=== PATIENT | female | born 1980 | race Two or more races ===

== ENCOUNTER 2019-07-30 15:27 | Inpatient (IN) | payer SELFPAY ==
[~2019-07-30] VITALS: Ht 165.1 cm; Wt 71.0 kg
--- NOTE | 2019-07-30 16:07 | NUR ---
metalsmith: Pt ambulatory to ED room 17 from [facility] in [facility] at this time
[2019-07-30 16:12] LABS: BASOPHILS # (AUTO) 0.04 x10^3/uL (0-0.1); BASOPHILS % (AUTO) 0 % (0-1); EOSINOPHILS # (AUTO) 0.23 x10^3/uL (0-0.4); EOSINOPHILS % (AUTO) 2 % (1-7); LYMPHOCYTES # (AUTO) 2.41 x10^3/uL (1-3.4); LYMPHOCYTES % (AUTO) 25 % (22-44); MD NO; MEAN CORPUSCULAR HEMOGLOBIN 28.9 pg (27.0-34.8); MEAN CORPUSCULAR HGB CONC 32.7 g/dL (32.4-35.8); MEAN CORPUSCULAR VOLUME 88.2 fL (80-100); MEAN PLATELET VOLUME 9.4 fL (7.4-10.4); MONOCYTES # (AUTO) 0.54 x10^3/uL (0.2-0.8); MONOCYTES % (AUTO) 6 % (2-9); NEUTROPHILS # (AUTO) 6.59 x10^3/uL (1.8-6.8); NEUTROPHILS % (AUTO) 67 % (42-75); PLATELET COUNT 331 x10^3/uL (130-400); RED BLOOD COUNT 4.82 x10^6/uL (3.82-5.3); RED CELL DISTRIBUTION WIDTH 15.1 % (9.6-15.2)
[2019-07-30 16:25] LABS: ALBUMIN 3.9 g/dL (3.4-5.0); ANION GAP 5 mmol/L (5-15); CALCIUM 8.9 mg/dL (8.5-10.1); CHLORIDE 108 mmol/L (98-107); CREATININE 0.97 mg/dL (0.55-1.02)
[2019-07-30] MEDS ORDERED: METRONIDAZOLE PMX 500MG/100ML 100 ML IV ONE (17:00)
[2019-07-30] MEDS ORDERED: AMPICILLIN/SULBACTAM 3 GM in SODIUM CHLORIDE 0.9% 100 ML IV ONE (17:00)
[2019-07-30] MEDS ORDERED: METRONIDAZOLE PMX 500MG/100ML 100 ML ONE (17:03)
[2019-07-30] MEDS ORDERED: PLEASE ENTER PATIENTS HEIGHT MC SCH (17:30)
[2019-07-30] MEDS ORDERED: PLEASE ENTER PATIENTS WEIGHT MC SCH (17:30)
[2019-07-30] MEDS ORDERED: MORPHINE SULFATE 4 MG/ML, 1ML IVPush PRN (17:30)
[2019-07-30] MEDS ORDERED: SODIUM CHLORIDE 0.9% 1,000 ML IV ONE (17:30)
[2019-07-30] MEDS ORDERED: ONDANSETRON 2MG/ML, 2ML IVPush ONE (17:30)
--- NOTE | 2019-07-30 17:47 | NUR ---
OBGYN PERFORMED GYNECOLOGICAL EXAM. ADIPOSE-APPEARING TISSUE IS PRTRUDING FROM VAGINA. PT TO GO TO OR THIS EVENING FOR REPAIR.
--- NOTE | 2019-07-30 18:16 | NUR ---
REPORT GIVEN TO FOOD AND BEVERAGE DIRECTOR.
[2019-07-30] MEDS ORDERED: MIDAZOLAM 1 MG/ML, 2ML ONE (18:35)
[2019-07-30] MEDS ORDERED: FENTANYL PF 250 MCG/5ML ONE (18:35)
[2019-07-30] MEDS ORDERED: BUPIVACAINE/PF-EPI 0.25% 1:200K ONE (18:51)
[2019-07-30] MEDS ORDERED: PROPOFOL 10 MG/ML, 20ML ONE (19:07)
[2019-07-30] MEDS ORDERED: SUCCINYLCHOLINE 20 MG/ML, 10ML ONE (19:07)
[2019-07-30] MEDS ORDERED: CEFAZOLIN 1,000 MG ONE (19:07)
[2019-07-30] MEDS ORDERED: ROCURONIUM 10 MG/ML,10ML ONE (19:07)
[2019-07-30] MEDS ORDERED: DEXAMETHASONE 4 MG/ML, 1ML ONE (19:07)
[2019-07-30] MEDS ORDERED: KETOROLAC 30 MG/1 ML ONE (19:07)
[2019-07-30] MEDS ORDERED: SUGAMMADEX 200 MG/2 ML IVPush ONE (19:45)
[2019-07-30] MEDS ORDERED: ALBUTEROL SULFATE 2.5 MG/3 ML NPPB PRN (20:00)
[2019-07-30] MEDS ORDERED: OXYcodone 5 MG/5 ML ORAL.SOL UDC PO PRN (20:00)
[2019-07-30] MEDS ORDERED: HYDROmorphone 2 MG/ML, 1ML IVPush PRN (20:00)
[2019-07-30] MEDS ORDERED: KETOROLAC 30 MG/1 ML IV PRN (20:00)
[2019-07-30] MEDS ORDERED: DIAZEPAM 5 MG/ML, 2ML IVPush PRN (20:00)
[2019-07-30] MEDS ORDERED: MEPERIDINE/PF 25MG/0.5ML IVPush PRN (20:00)
[2019-07-30] MEDS ORDERED: PROMETHAZINE 25 MG/ML, 1ML IV PRN (20:00)
[2019-07-30] MEDS ORDERED: ACETAMINOPHEN 325 MG TABLET PO PRN (20:00)
[2019-07-30] MEDS ORDERED: FENTANYL PF 100 MCG/2ML IV PRN (20:00)
[2019-07-30] MEDS ORDERED: LABETALOL 5MG/ML, 20ML IV PRN (20:00)
[2019-07-30] MEDS ORDERED: hydrALAzine 20 MG/ML, 1ML IV PRN (20:00)
[2019-07-30] MEDS ORDERED: FENTANYL PF 100 MCG/2ML ONE ×2 (20:14→20:54)
[2019-07-30] MEDS ORDERED: ONDANSETRON 2MG/ML, 2ML IVPush PRN (20:30)
[2019-07-30] MEDS ORDERED: morphine SULFATE 10 MG/ML, 1ML IVPush PRN (20:30)
[2019-07-30] MEDS ORDERED: HYDROmorphone 1 MG/ML, 1ML INJ ONE (20:55)
[2019-07-30] MEDS ORDERED: OXYcodone 5 MG/5 ML ORAL.SOL UDC ONE (20:55)
[2019-07-30] MEDS ORDERED: MEPERIDINE/PF 25MG/ML,1ML ONE (20:55)
[2019-07-30] MEDS ORDERED: PROMETHAZINE 25 MG/ML, 1ML ONE (21:03)
[2019-07-30] MEDS ORDERED: DIPHENHYDRAMINE 50 MG/ML, 1ML IVPush PRN (22:00)
[2019-07-30] MEDS: SIMETHICONE 80 MG CHEW TAB PO SCH (22:43)
[2019-07-30] MEDS: SENNA/DOCUSATE TABLET PO SCH (22:43)
[2019-07-30] MEDS: LACTATED RINGERS 1,000 ML IV SCH (23:46)
[2019-07-31] VITALS: BP 98/65
[2019-07-31 02:29] VITALS: BP 102/69
[2019-07-31] MEDS: LACTATED RINGERS 1,000 ML IV SCH ×3 (06:12→20:17)
[2019-07-31 06:56] VITALS: BP 90/56
[2019-07-31] MEDS: SIMETHICONE 80 MG CHEW TAB PO SCH ×3 (08:23→21:46)
[2019-07-31] MEDS: OXYcodone/APAP 5/325MG TABLET PO PRN ×4 (08:40→22:00)
[2019-07-31] MEDS ORDERED: DOCU-131 PO (12:34)
[2019-07-31] MEDS ORDERED: OXYC-302 PO (12:34)
[2019-07-31] MEDS ORDERED: IBUP-1222 PO (12:35)
[2019-07-31 12:38] VITALS: BP 95/60
[2019-07-31] MEDS ORDERED: PROMETHAZINE 12.5 MG SUPP PR PRN (18:30)
[2019-07-31 19:35] VITALS: BP 90/56
[2019-07-31] MEDS: SENNA/DOCUSATE TABLET PO SCH (21:46)
[2019-08-01 01:58] VITALS: BP 92/55
[2019-08-01] MEDS: OXYcodone/APAP 5/325MG TABLET PO PRN ×2 (03:47→08:06)
[2019-08-01] MEDS: LACTATED RINGERS 1,000 ML IV SCH ×2 (03:48→10:36)
[2019-08-01 07:29] VITALS: BP 92/62
[2019-08-01] MEDS: SIMETHICONE 80 MG CHEW TAB PO SCH (08:05)
[2019-08-01] MEDS ORDERED: HYDROmorphone 2MG TABLET PO PRN (10:30)
[2019-08-01] MEDS ORDERED: ONDANSETRON 4 MG TABLET PO ONE (10:30)
[2019-08-01 12:59] VITALS: BP 106/62
[2019-08-01] MEDS ORDERED: HYDR2TAB29 PO (14:24)
[2019-08-01] MEDS ORDERED: ONDA4TAB7 PO (14:25)
[2019-08-01 16:10] VITALS: BP 94/65
== END 2019-08-01 13:35 | disposition home or self-care (01) | DRG 907 ==
LOC: ED 17:58 → EDIP 18:15 → 4NE 22:26
PROVIDERS: ADMIT Obstetrics & Gynecology; ATTEND Obstetrics & Gynecology
PROC: 0UQ Female Reproductive System, Repair (ICD-10-PCS; 2019-07-30)
PROC: 3E0T3BZ Introduction of Anesthetic Agent into Peripheral Nerves and Plexi, Percutaneous Approach (ICD-10-PCS; 2019-07-30)
PROC: 0UQG0ZZ Repair Vagina, Open Approach (ICD-10-PCS; principal; 2019-07-30 19:00)
DX: T81.32XA Disruption of internal operation (surgical) wound, not elsewhere classified, initial encounter (principal); J18.9 Pneumonia, unspecified organism; K66.0 Peritoneal adhesions (postprocedural) (postinfection); N89.8 Other specified noninflammatory disorders of vagina; R32 Unspecified urinary incontinence; Y83.8 Other surgical procedures as the cause of abnormal reaction of the patient, or of later complication, without mention of misadventure at the time of the procedure; Y92.89 Other specified places as the place of occurrence of the external cause
CPT/HCPCS: 36415; 80048; 82040; 84703; 85025; 99285; G0378; J0295; J0690; J1100; J1170; J1885; J2175; J2250; J2405; J2550; J2704; J3010; Q0162; J0330; J7030; J7120